=== PATIENT | female | born 1990 | race Caucasian/White ===

== ENCOUNTER 2018-04-22 04:47 | Emergency (ER) | payer OTHER ==
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
[2018-04-22] MEDS ORDERED: LEVOFLOXACIN/D5W 750 MG/150 ML 150 ML IVPB ONE (05:30)
[2018-04-22] MEDS ORDERED: ACETAMINOPHEN 500 MG TAB PO ONE (05:40)
--- NOTE | 2018-04-22 06:36 | RADIOLOGY IMAGING REPORT ---
FACILITY: [facility] - [place], [place] PATIENT NAME: Christine Isaacs : 1990 MR: [id number] V: [id number] EXAM DATE: [id number] ORDERING PHYSICIAN: DONALD SAMUELS TECHNOLOGIST: [place] [facility] [place] Christine Isaacs : 1990 Visit/Account:[id number] Date of Sevice: 04/22/2018 INDICATION: infection, osteo EXAM DATE: 04/22/2018 5:30 AM COMPARISON: None. FINDINGS: 3 images of the left long finger. Mineralization is normal. No acute alignment abnormality or fractur e. No destructive/erosive lesion. Soft tissue swelling over the dorsal aspect there is soft tissue swelling and irregularity over the dorsal aspect of the distal interphalangeal joint. No radiopaque foreign body. IMPRESSION: Soft tissue swelling and irregularity over the dorsal aspect of the left long finger dis sophy interphalangeal joint. No evidence of osteomyelitis. Report Dictated By: Christiano Ulloa MD at 04/22/2018 6:27 AM Report E-Signed By: Christiano Ulloa MD at 04/22/2018 6:32 AM WSN:[id number]
[2018-04-22] MEDS ORDERED: IOPAMIDOL 76% 75 ML INFUS BTL 75 ML ONE (06:47)
--- NOTE | 2018-04-22 07:42 | RADIOLOGY IMAGING REPORT ---
[place] [facility] [place]: Christine Isaacs : 1990 MR: [id number] V: [id number] EXAM DATE: ORDERING PHYSICIAN: DONALD SAMUELS TECHNOLOGIST: Location: [facility] Patient: Christine Isaacs : 1990 Visit/Account:[id number] Date of Sevice: 04/22/2018 EXAMINATION: CT of the left hand with IV contrast HISTORY: 3rd digit infection. Concern for osteomyelitis. COMPARISON: Left 3rd finger radiographs from 04/22/2018. TECHNIQUE: Axial images were taken through the left hand without intravenous contrast administration . Coronal and sagittal reformatted images were obtained from the axial source data. CONTRAST: 75 mL of IV Isovue-370. One of the following dose optimization techniques was utilized in the performance of this exam: Autom ated exposure control; adjustment of the mA and/or kV according to the patient's size; or use of an i terative reconstruction technique. Specific details can be referenced in the facility's radiology C T exam operational policy. FINDINGS: Bones: There is subtle focal osteopenia with slight periosteal elevation at the medial distal margin of the 3rd middle phalanx (coronal image 30 series 5/sagittal image 65 series 6). No cortical erosio n. Joint spaces: Negative. Alignment: Normal. Soft tissues: There is diffuse soft tissue edema of the 3rd finger, worst in the dorsal soft tissues adjacent to the DIP joint. There is no soft tissue gas or rim-enhancing fluid collection. IMPRESSION: 1. Findings suspicious for osteomyelitis at the medial distal margin of the left 3rd middle phalanx. 2. Cellulitis of the left 3rd finger, worst in the dorsal soft tissues adjacent to the DIP joint. These findings were discussed with DONALD SAMUELS at 04/22/2018 7:35 AM. Report Dictated By: Rebecca Leong MD at 04/22/2018 7:20 AM Report E-Signed By: Rebecca Leong MD at 04/22/2018 7:38 AM WSN:[id number]
[2018-04-22 08:00] VITALS: BP 121/75
== END 2018-04-22 08:20 | disposition home or self-care (01) ==
LOC: ER 06:14
DX: L08.9 Local infection of the skin and subcutaneous tissue, unspecified (principal)
CPT/HCPCS: 73140; 73201; 96365; 96366; 99284; J1956; Q9967